=== PATIENT | male | born 1970 | race Caucasian/White ===

== ENCOUNTER → 2017-02-17 | Outpatient (CLI) | payer BC ==
[~2017-02-17] MED LIST: ATOR-22 PO; CHOL100041 PO; CIPR-255 PO; CYAN100T PO; FELO10TA2 PO; HYG/25 PO; INSU1.2I SC; INSU100I SQ; IRBE1TAB50 PO; LIRA18IN SQ; METF-384 PO; OMEG10007 PO; SPIR25TA PO
[2017-02-17 13:18] LABS: ESTIMATED AVERAGE GLUCOSE 163 mg/dl; HA1C FLAG Normal (Normal)
[2017-02-17 15:02] LABS: ALT/SGPT 60 U/L (12-78); AST/SGOT 86 U/L (15-37); BLOOD UREA NITROGEN 18 mg/dl (7-18); BUN/CREATININE RATIO 20.3 (10-20); CALCIUM 9.3 mg/dl (8.5-10.1); CARBON DIOXIDE 27 mmol/L (21-32); CHLORIDE 101 mmol/L (98-107); GLUCOSE 141 mg/dl (70-99); POTASSIUM 3.9 mmol/L (3.5-5.1); SODIUM 136 mmol/L (136-145)
[2017-02-17 15:05] LABS: ALKALINE PHOSPHATASE 85 U/L (45-117); CHOLESTEROL 127 mg/dl (0-200); CHOLESTEROL/HDL RATIO 5.8; HDL CHOLESTEROL 22 mg/dl; TRIGLYCERIDES 685 mg/dl (0-150)
--- NOTE | 2017-02-21 13:16 | CODING QUERY MEDICAL NECESSITY ---
CQSUPPORTING DIAGNOSIS NEEDED A supporting diagnosis is required for the test/procedure performed on this patient in order for us to be reimbursed by the patient's insurance. Please provide a supporting diagnosis for the following test/procedure listed below next to the test name along with your signature. *If there is no additional diagnosis for this patient that would support the following test/procedure please document that below next to the test/procedure. Test(s)/Procedure(s) that require a supporting diagnosis: DOS 02/17/17 VITAMIN D GLYCATED HEMOGLOBIN ORDERED BY [facility] Provider Signature: Date: Thank you Teresa Johnson Health Information Management Once completed, please kindly fax back to [phone] For questions please call [phone]
== END | disposition home or self-care (01) ==
LOC: C.LABPVFM 08:16
PROVIDERS: ATTEND Physician Assistant
DX: E78.5 Hyperlipidemia, unspecified (principal); E55.9 Vitamin D deficiency, unspecified; E11.9 Type 2 diabetes mellitus without complications

== ENCOUNTER → 2017-12-16 | Outpatient (CLI) | payer OTHER ==
[2017-12-16 13:08] LABS: HEMOGLOBIN A1C 7.5 % (4.5-5.6)
[2017-12-16 14:17] LABS: ALBUMIN 4.3 gm/dl (3.4-5.0); ALKALINE PHOSPHATASE 119 U/L (45-117); ALT/SGPT 60 U/L (12-78); AST/SGOT 58 U/L (15-37); BLOOD UREA NITROGEN 20 mg/dl (7-18); CALCIUM 9.2 mg/dl (8.5-10.1); CARBON DIOXIDE 24 mmol/L (21-32); CHOLESTEROL 105 mg/dl (0-200); CREATININE 0.99 mg/dl (0.60-1.40); POTASSIUM 4.4 mmol/L (3.5-5.1); SODIUM 133 mmol/L (136-145); TOTAL PROTEIN 8.4 gm/dl (6.4-8.2)
[2017-12-16 14:18] LABS: GLUCOSE 287 mg/dl (70-99)
== END | disposition home or self-care (01) ==
LOC: C.LABPVFM 08:14
PROVIDERS: ATTEND Physician Assistant
DX: E11.65 Type 2 diabetes mellitus with hyperglycemia (principal)

== ENCOUNTER → 2017-12-24 | Outpatient (CLI) | payer OTHER ==
[~2017-12-24] MED LIST changes: +OPTIRAY 320 IV PRN
--- NOTE | 2017-12-24 08:31 | DIAGNOSTIC IMAGING REPORT ---
ABD/PELVIS IV CONTRAST ONLY CLINICAL HISTORY: 47 years-old Male presenting with C67.9 Bladder cancer urogram with delayed images E X0D E [id number]. TECHNIQUE: Multidetector CT of the abdomen and pelvis was performed after the administration of intravenous contrast. IV contrast: 120 mL of Optiray 320. A dose lowering technique was used consistent with the principles of ALARA (as low as reasonably achievable). COMPARISON: 06/25/2016. CT DOSE (mGy.cm): The estimated cumulative dose is 1149.95 mGycm. FINDINGS: Tracer Clerk topogram: Unremarkable. Lung bases: Calcified granuloma noted in the right lower lobe. Lung bases otherwise clear. Normal heart size. No pericardial or pleural effusion. Liver: Enlarged measuring 21.6 cm in maximal sagittal dimension. Density consistent with hepatic steatosis. No focal lesion. Patent hepatic vasculature. Parenchymal calcification noted possibly indicating prior granulomatous infection. Biliary: No intrahepatic or extrahepatic biliary ductal dilatation. Normal gallbladder. Pancreas: Mild parenchymal atrophy. Spleen: Enlarged measuring 14.5 cm in maximal sagittal dimension. Adrenal glands: Normal. Kidneys and ureters: Normal renal parenchymal enhancement. No renal mass. No hydronephrosis. No gross evidence of nephrolithiasis allowing for opacification of the collecting systems. No filling defect within the renal collecting systems. Ureters normal. Bladder: Circumferential bladder wall thickening. The previously noted polypoid thickening along the right bladder trigone is no longer present. Pelvic organs: Prostate and seminal vesicles normal. Bowel: Normal appendix. No bowel obstruction. Peritoneal cavity: No free fluid or intraperitoneal gas. Lymph nodes: Prominent lymph node in the portacaval region measuring 14 mm in the short axis, unchanged. No additional sites of lymphadenopathy in the abdomen or pelvis. Vasculature: Atherosclerosis of the normal caliber abdominal aorta. IVC patent. Abdominal wall: Mild skin thickening and subcutaneous infiltration in the right anterior abdomen may relate to medication administration. Musculoskeletal: Degenerative changes of the spine. IMPRESSION: 1. Interval resection of the polypoid lesion at the right bladder trigone. No new polypoid bladder lesion or lesion within the urinary collecting systems. 2. Circumference of bladder wall thickening could relate to cystitis, infectious or post radiation change. Correlate with urinalysis. 3. Stable enlarged portacaval lymph node. This is nonspecific and may be reactive. Attention on follow-up. 4. Hepatic steatosis and hepatomegaly. 5. Persistent splenomegaly, which could potentially imply portal hypertension. Electronically signed by: Rayray Topete M.D. 12/24/2017 8:30 AM Dictated Date/Time: 12/24/2017 8:22 AM
== END | disposition home or self-care (01) ==
LOC: C.CTS 07:55
PROVIDERS: ATTEND Urology
DX: C67.9 Malignant neoplasm of bladder, unspecified (principal); K76.0 Fatty (change of) liver, not elsewhere classified; R16.0 Hepatomegaly, not elsewhere classified

== ENCOUNTER → 2017-12-26 | Outpatient (CLI) | payer OTHER ==
[~2017-12-26] MED LIST changes: -OPTIRAY 320 IV PRN
[2017-12-26 13:10] LABS: BLOOD UREA NITROGEN 19 mg/dl (7-18); CREATININE 1.08 mg/dl (0.60-1.40)
== END | disposition home or self-care (01) ==
LOC: C.LABPVFM 08:00
PROVIDERS: ATTEND Urology
DX: C67.9 Malignant neoplasm of bladder, unspecified (principal); E11.65 Type 2 diabetes mellitus with hyperglycemia